=== PATIENT | male | born 1970 | race Caucasian/White ===

== ENCOUNTER 2017-05-15 09:51 | Emergency (ER) | payer OTHER ==
[2017-05-15 09:59] VITALS: TEMP 97.9; O2SAT 95
[2017-05-15] MEDS ORDERED: NS 1,000 ML IV ONE (10:15)
[2017-05-15 10:26] LABS: PLATELET COUNT 190 10^3/uL (150-400)
[2017-05-15] MEDS ORDERED: IOPAMIDOL (ISOVUE-300) 100 ML BTL ONE (10:42)
--- NOTE | 2017-05-15 11:46 | EDPHY ---
H & P Stated Complaint: lower abd /rectal/prostate pain x 2 days Time Seen by Provider: 05/15/17 10:00 HPI/ROS: Chief complaint: Pelvic pain History of present illness: This is a 46-year-old male presents to the emergency department for evaluation of pelvic pain. Reports pain deep in the pelvis. He has discomfort and difficulty urinating. There is some discomfort with defecation. Further reports "pins and needles "in the perineal region. He has had symptoms for number of months but they have significantly worsened over the last few days. He denies any precipitating factors. He denies any alleviating or aggravating factors. He denies other associated signs or symptoms including no fevers, no abdominal pain, no nausea, vomiting diarrhea or constipation, no blood in the urine or stools, no pain or swelling in the testicles. Review of systems: A 10 point review of systems was obtained and other than described above was negative - Personal History Current Tetanus/Diphtheria Vaccine: Yes - Medical/Surgical History Hx Asthma: No Hx Chronic Respiratory Disease: No Hx Diabetes: No Hx Cardiac Disease: No Hx Renal Disease: No Hx Cirrhosis: No Hx Alcoholism: No Hx HIV/AIDS: No Hx Splenectomy or Spleen Trauma: No Other PMH: inguinal hernia - Social History Smoking Status: Never smoked - Physical Exam Exam: General Appearance: Alert, nontoxic. Eyes: Pupils equal and round no pallor or injection. ENT, Mouth: Mucous membranes moist. Respiratory: There are no retractions, lungs are clear to auscultation. Cardiovascular: Regular rate and rhythm. Gastrointestinal: Abdomen is soft and non tender, no masses, bowel sounds normal. Genitourinary: No urethral discharge. Penis and scrotum unremarkable. Testicles and surrounding cord structures are non edematous and nontender. No hernias appreciated. Neurological: Alert and oriented x4. Strength and sensation intact and symmetrical. Skin: Warm and dry, no rashes. Musculoskeletal: Neck is supple non tender. Extremities are symmetrical, full range of motion. Psychiatric: Patient is oriented X 3, there is no agitation. Constitutional: Initial Vital Signs Temperature (C) 36.6 C 05/15/17 09:56 Heart Rate 66 05/15/17 09:56 Respiratory Rate 17 05/15/17 09:56 Blood Pressure 133/83 H 05/15/17 09:56 O2 Sat (%) 95 05/15/17 09:56 O2 Delivery Mode Room Air Allergies/Adverse Reactions: No Known Allergies Allergy (Unverified 05/15/17 09:56) Home Medications: Medication Instructions Recorded NK [No Known Home Meds] 05/15/17 Medical Decision Making - Diagnostics Imaging: Discussed imaging studies w/ call or contact centre operator Radiologist ED Course/Re-evaluation: Patient discussed with my primary supervising physician Dr. Katie Edwards. Patient presents to the emergency department for pelvic pain. This appears to be chronic but worsening. Evaluation is largely unremarkable. Of note there are some hepatic lesions noted on CT scan. I have discussed this with patient and he states these have been seen previously and evaluated and he was told not to worry about them. I suspected a prostate issue with the patient. I believe he is appropriate for outpatient management. He is discharged home and referred to a primary care doctor and urology for recheck. Return precautions are given. Patient voiced understanding and agreement with plan. Differential Diagnosis: Included but not limited to urinary tract infection, prostatitis, deep space abscess, diverticulitis, colitis, malignancy - Data Points Laboratory Results: Laboratory Results 05/15/17 10:20 05/15/17 10:20 Medications Given: Discontinued Medications Sodium Chloride (Ns) 1,000 mls @ 0 mls/hr IV EDNOW ONE; Wide Open PRN Reason: Protocol Stop: 05/15/17 10:16 Last Admin: 05/15/17 10:29 Dose: 1,000 mls Departure - Departure Disposition: Home, Routine, Self-Care Clinical Impression: Pelvic pain Condition: Good Instructions: Pelvic Pain in Men (ED) Additional Instructions: Follow-up with a urologist and a primary care doctor for continued evaluation and care If symptoms worsen or new symptoms develop return to the emergency room for recheck Referrals: Fidel Hackett MD [Primary Care Provider] - As per Instructions Gómez Santillan MD [Medical Doctor] - As per Instructions Renae Farias MD [Medical Doctor] - As per Instructions Darrell Meza MD [Medical Doctor] - As per Instructions
[2017-05-15 12:30] VITALS: BP 118/64; PULSE 64; RESP 18
== END 2017-05-15 12:31 | disposition home or self-care (01) ==
DX: R10.2 Pelvic and perineal pain (principal); E86.9 Volume depletion, unspecified
CPT/HCPCS: Q9967